=== PATIENT | female | born 1965 | race Caucasian/White ===

== ENCOUNTER → 2017-01-14 | Outpatient (CLI) | payer BC, OTHER ==
[~2017-01-14] MED LIST: ACETAMINOPHEN650 M1 PO; ALPRAZOLAM PO; ARIXTRA2.5 MG/0.1 SUBQ; LIPITOR PO; LOPRESSOR PO; NORCO 7.5-3251 EACH PO
--- NOTE | ~2017-01-14 | MY11 ---
[facility] A Service of [facility] & [facility] RADIOLOGY TEXT RESULTS PATIENT: EARLINE CASTELLON LOCATION: [facility] : 65 UNIT #: [id number] AGE: [address]: Mikhail Chicas MD SEX: F ORDER DR: [id number] [facility] [address]. [place], [place] [address] [id number] O MR#: [id number] Acc #: [id number] NAME: EARLINE CASTELLON. : 1965 SEX: F STUDY DATE/TIME: 01/14/2017 16:13 UNIT: [facility] ROOM: STUDY DESCRIPTION: MY Mammogram Screening Dig Bhanu Attending Physician: Mikhail Chicas Jr., M.D. Ordering Physician: Mikhail Chicas Jr., M.D. Primary Care Physician: Mikhail Chicas Jr., M.D. MEDICAL IMAGING REPORT This report is preliminary unless electronic signature is present EXAM Bilateral digital screening mammogram with CAD 01/14/2017 INDICATIONS 51-year-old female for routine screening. No reported problems no personal history of breast cancer. Family history positive in the patient's sister at age 64 no surgeries. TECHNIQUE CC and MLO views of the breast were obtained and reviewed with an FDA-approved CAD device COMPARISON 03/07/2015 FINDINGS Breast parenchyma is composed of scattered fibroglandular densities, the pattern is unchanged. There is asymmetric fibroglandular predominance in the upper outer right breast. There is a new nodule anterior to the pectoralis muscle on the right only seen on the MLO view, measuring 11 mm. This could represent an intramammary node but is not identified on any of the prior studies and should be further assessed with a true lateral view and focused ultrasound. It is not visible in exaggerated CC lateral projection. Also in the right breast there is an asymmetric density in the upper outer right breast at middle third depth, measuring about 16 mm. This was also marked by the CAD system and is not present on any other prior imaging studies. Suggest further evaluation with spot compression and rolled CC views. There are benign calcifications present. IMPRESSION 1. There is a new nodule anterior to the pectoralis muscle on the right. [facility] A Service of [facility] RADIOLOGY TEXT RESULTS PATIENT: EARLINE CASTELLON LOCATION: [facility] : 65 UNIT #: [id number] AGE: [address]: Mikhail Chicas MD SEX: F ORDER DR: Suggest further evaluation with a true lateral view. Ultrasound will also be necessary for further assessment. 2. There is a new asymmetry in the upper outer central right breast. It should be further evaluated with spot compression CC and rolled CC views along with a true lateral view as well. If an abnormality persists it could be further evaluated with ultrasound. Patients over the age of 40 are entered into a reminder system with target due date for the next mammogram. A result letter will also be sent to the patient. BIRADS: 0. Incomplete; Need additional imaging evaluation and/or prior mammograms for comparison. Dictated by... Lester Kelley M.D. THIS IS AN ELECTRONICALLY VERIFIED REPORT Lester Kelley M.D. at 01/17/2017 7:45 AM GREG/any TD: 01/15/2017 04:34 JOB #: [id number] MEDICAL IMAGING REPORT COPY
== END | disposition home or self-care (01) ==
LOC: CWCC 15:53
DX: Z12.31 Encounter for screening mammogram for malignant neoplasm of breast (principal); Z80.3 Family history of malignant neoplasm of breast; N63 Unspecified lump in breast; N64.89 Other specified disorders of breast
CPT/HCPCS: G0202

== ENCOUNTER → 2017-01-26 | Outpatient (CLI) | payer BC, OTHER ==
--- NOTE | ~2017-01-26 | US24 ---
[facility] A Service of [facility] RADIOLOGY TEXT RESULTS PATIENT: EARLINE CASTELLON LOCATION: [facility] : 65 UNIT #: [id number] AGE: [address]: Mikhail Chicas MD SEX: F ORDER DR: [id number] [facility] [address] [place], [place] [address] [id number] O MR#: [id number] Acc #: [id number] NAME: EARLINE CASTELLON. : 1965 SEX: F STUDY DATE/TIME: 01/26/2017 15:17 UNIT: [facility] ROOM: STUDY DESCRIPTION: US Breast Unilateral Attending Physician: Mikhail Chicas Jr., M.D. Ordering Physician: Mikhail Chicas Jr., M.D. Primary Care Physician: Mikhail Chicas Jr., M.D. MEDICAL IMAGING REPORT This report is preliminary unless electronic signature is present EXAM Right breast ultrasound. INDICATION Abnormal mammogram right breast mass. PROCEDURE St-scale and Doppler imaging of the right breast in the area of mammographic concern. COMPARISON STUDIES Concurrently right breast diagnostic mammogram. FINDINGS/IMPRESSION Refer to separately dictated diagnostic mammogram for workup, findings, and recommendations. Patients over the age of 40 are entered into a reminder system with target due date for the next mammogram. A result letter will also be sent to the patient. BIRADS: 4 Suspicious abnormality; biopsy should be considered. Dictated by... Favio Landeros M.D. THIS IS AN ELECTRONICALLY VERIFIED REPORT Favio Landeros M.D. at 01/27/2017 9:39 AM EED/julito TD: 01/26/2017 16:22 [facility] A Service [facility] RADIOLOGY TEXT RESULTS PATIENT: EARLINE CASTELLON LOCATION: [facility] : 65 UNIT #: [id number] AGE: [address]: Mikhail Chicas MD SEX: F ORDER DR: BRONSON #: [id number] MEDICAL IMAGING REPORT Page 1 of 1 COPY
--- NOTE | ~2017-01-26 | MY8 ---
[facility] A Service of [facility] & [facility] RADIOLOGY TEXT RESULTS PATIENT: EARLINE CASTELLON LOCATION: [facility] : 65 UNIT #: [id number] AGE: [address]: Mikhail Chicas MD SEX: F ORDER DR: [id number] [place] [id number] [facility]. [place], [place] [address] [id number] O MR#: [id number] Acc #: [id number] NAME: EARLINE CASTELLON. : 1965 SEX: F STUDY DATE/TIME: 01/26/2017 14:57 UNIT: [facility] ROOM: STUDY DESCRIPTION: MY Mammogram Dx Dig Rt Attending Physician: Mikhail Chicas Jr., M.D. Ordering Physician: Mikhail Chicas Jr., M.D. Primary Care Physician: Mikhail Chicas Jr., M.D. MEDICAL IMAGING REPORT This report is preliminary unless electronic signature is present EXAM Right digital diagnostic mammogram 01/26/2017 INDICATIONS Asymmetry in the central right breast and a asymmetry in the posterior right breast on screening mammogram. PROCEDURE Rolled medial and lateral CC views. True lateral view and XCCL view of the right breast. Spot compression views in the CC projection. Images obtained on a digital mammography unit. COMPARISON STUDIES Comparison screening mammogram 01/14/2017 FINDINGS The asymmetry in the central right breast is subtly seen on 1 of the spot compression views. Appears to efface on the rolled views and the other spot compression view. No suspicious calcifications are seen in this region. There is a questionably persistent area measuring approximately 11 mm. There is a 10 mm round mass in the far posterior upper outer quadrant of the right breast along the pectoralis muscle. Concurrently performed right breast ultrasound demonstrates a 7 mm intramammary lymph node in the far upper outer quadrant of the right breast and it correlates with the mammographic finding. There is a 2-3 mm benign cyst in the subareolar right breast. In the subareolar right breast there is a 5 mm oblong hypoechoic mass. This cannot be characterized as a benign simple cyst. IMPRESSION [facility] A Service of [facility] & [facility] RADIOLOGY TEXT RESULTS PATIENT: EARLINE CASTELLON LOCATION: [facility] : 65 UNIT #: [id number] AGE: [address]: Mikhail Chicas MD SEX: F ORDER DR: 1. 5 mm indeterminate hypoechoic mass subareolar right breast. It is not entirely clear whether this represents the questionable abnormality on the mammogram. Recommend ultrasound-guided core biopsy with clip placement. 2. Intramammary lymph node far upper outer quadrant of the right breast correlates with the mammographic abnormality. There is also a small benign cyst in the subareolar right breast. BIRADS: 4 - Suspicious abnormality - Biopsy should be considered Dictated by... Favio Landeros M.D. THIS IS AN ELECTRONICALLY VERIFIED REPORT Favio Landeros M.D. at 01/27/2017 9:39 AM Carmen TD: 01/26/2017 16:01 JOB #: [id number] MEDICAL IMAGING REPORT Page 1 of 1 COPY
== END | disposition home or self-care (01) ==
LOC: CMAM 14:27
DX: N64.89 Other specified disorders of breast (principal)
CPT/HCPCS: 76641; G0206

== ENCOUNTER → 2017-02-02 | Day surgery (SDC) | payer BC, OTHER ==
--- NOTE | ~2017-02-02 | US200 ---
[facility] A Service of [facility] & [facility] RADIOLOGY TEXT RESULTS PATIENT: EARLINE CASTELLON LOCATION: [facility] : 65 UNIT #: [id number] AGE: [address]: Mikhail Chicas MD SEX: F ORDER DR: [id number] [facility] [address] [place], [place] [address] [id number] O MR#: [id number] Acc #: [id number] NAME: EARLINE CASTELLON. : 1965 SEX: F STUDY DATE/TIME: 02/02/2017 13:28 UNIT: [facility] ROOM: STUDY DESCRIPTION: US Breast Guided Bx 1st Lesion Attending Physician: Mikhail Chicas Jr., M.D. Ordering Physician: Mikhail Chicas Jr., M.D. Primary Care Physician: Mikhail Chicas Jr., M.D. MEDICAL IMAGING REPORT This report is preliminary unless electronic signature is present REVISED REPORT SEE ADDENDUM EXAM Ultrasound-guided right breast biopsy on 02/02 INDICATIONS Hypoechoic lesion which is indeterminate seen on recent diagnostic mammogram. Biopsy or aspiration recommended. PROCEDURE Informed consent was obtained and time-out was performed. The right breast was prepped and draped using maximum sterile barrier technique. 1% lidocaine without epinephrine used for local anesthesia. The small hypoechoic nodule in the subareolar right breast was localized. Initial attempts at aspirating with a 20-gauge needle were unsuccessful. Then, 2 14-gauge core biopsies were obtained through the lesion using an Achieve needle. These were placed in formalin and sent to pathology. Marking clip was left in place. Marking clip is in the anterior breast, well away from the vague density seen on the diagnostic mammogram on the right CC view. Therefore, further evaluation of the right breast with 3-D tomosynthesis is recommended at [facility]. Findings and recommendations were discussed with the patient at the time of her procedure today. Permanent ultrasound images were recorded. There are no immediate complications. IMPRESSION 1. Successful biopsy of a subareolar right breast nodule with clip placement. 2. The nodule that was biopsied today does not correspond to the area of density in the right breast on the CC view on the recent diagnostic mammogram. Therefore, further evaluation of the right breast with 3-D tomosynthesis is recommended at [facility]. [facility] A Service of [facility] RADIOLOGY TEXT RESULTS PATIENT: EARLINE CASTELLON LOCATION: [facility] : 65 UNIT #: [id number] AGE: [address]: Mikhail Chicas MD SEX: F ORDER DR: Dictated by... Jayant Romeo Jr., M.D. THIS IS AN ELECTRONICALLY VERIFIED REPORT Jayant Romeo Jr., M.D. at 02/03/2017 6:10 AM RICK/any TD: 02/02/2017 16:22 JOB #: [id number] ADDENDUM Pathology results have been received. No malignancy is identified. Six-month followup ultrasound of this lesion is recommended to document expected stability. Additionally, 3-D tomosynthesis mammogram of the right breast is recommended at [facility], as this lesion that was biopsied does not correspond to the lesion seen on prior mammogram. Please see the above report. Dictated by... Jayant Romeo Jr., M.D. RLK/ez TD: 02/09/2017 22:34 JOB #: [id number] CC: Soalysona/invision Please Delete MEDICAL IMAGING REPORT Page 1 of 1
== END | disposition home or self-care (01) ==
LOC: CWCC 12:41
DX: N63 Unspecified lump in breast (principal); N60.31 Fibrosclerosis of right breast; N60.41 Mammary duct ectasia of right breast
CPT/HCPCS: 88305; G0204